=== PATIENT | female | born 1955 | race Caucasian/White ===

== ENCOUNTER 2020-03-27 15:11 | Observation (INO) | payer BC ==
[2020-03-27] MEDS ORDERED: KETOROLAC 15 MG/ML 1 ML VIAL IVP STA (16:31)
[2020-03-27] MEDS ORDERED: SODIUM CHLORIDE 0.9% 1,000 ML IV STA (16:31)
[2020-03-27 16:56] LABS: Basophils # (A) 0.1 k/uL (0-0.2); Basophils % (A) 1 %; Eosinophils # (A) 0.1 k/uL (0-0.7); Eosinophils % (A) 1 %; HGB 14.6 gm/dL (11.4-16.0); Lymphocytes % (A) 27 %; MCH 31.4 pg (25.0-35.0); MCV 92.4 fL (80.0-100.0); Monocytes # (A) 0.3 k/uL (0-1.0); Monocytes % (A) 4 %; Neutrophils % (A) 66 %; Platelet Count 273 k/uL (150-450); RBC 4.65 m/uL (3.80-5.40); RDW 12.6 % (11.5-15.5); WBC 7.6 k/uL (3.8-10.6)
--- NOTE | 2020-03-27 17:04 | XR ---
EXAMINATION TYPE: XR chest 2V DATE OF EXAM: 03/27/2020 COMPARISON: 01/07/2014 HISTORY: Chest pain TECHNIQUE: FINDINGS: Heart and mediastinum are normal. Lungs are clear. Diaphragm is normal. Bony thorax appears normal. IMPRESSION: Normal chest. No change.
[2020-03-27 17:08] LABS: ALT 20 U/L (4-34); AST 34 U/L (14-36); African American GFR (CKD) >90 (>60 ml/min/1.73 sqM); Albumin 4.8 g/dL (3.5-5.0); Alkaline Phosphatase 94 U/L (38-126); Anion Gap 10 mmol/L; Blood Urea Nitrogen 11 mg/dL (7-17); Calcium 10.1 mg/dL (8.4-10.2); Carbon Dioxide 24 mmol/L (22-30); Chloride 104 mmol/L (98-107); Glucose 108 mg/dL (74-99); Lipase 74 U/L (23-300); Magnesium 2.1 mg/dL (1.6-2.3); Non-African American GFR(CKD) >90 (>60 ml/min/1.73 sqM); Potassium 4.1 mmol/L (3.5-5.1); Sodium 138 mmol/L (137-145); Total Bilirubin 0.7 mg/dL (0.2-1.3); Total Protein 8.1 g/dL (6.3-8.2)
[2020-03-27 17:09] LABS: Prothrombin Time 10.7 sec (9.0-12.0)
--- NOTE | 2020-03-27 17:29 | ED ---
Chest Pain HPI - General Chief Complaint: Chest Pain Stated Complaint: Chest Pain, High BP Time Seen by Provider: 03/27/20 16:14 Source: patient, RN notes reviewed Mode of arrival: ambulatory Limitations: no limitations - History of Present Illness Initial Comments: 64-year-old female presents emergency Department with chief complaint of chest pressure, high blood pressure. Patient states she has not felt well over the last few days patient states that she has some pressure underneath her left breast is no shortness of breath. Patient noticed her blood pressure has been elevated. Patient has seen cardiology in the past and had multiple stress test, echo and Holter monitor secondary to persistent tachycardia. Patient takes metoprolol was advised to increase that and started on a statin though she states that she is afraid medications did not start this. Patient states that she started having some infection of her saddle area gland in the left states she took a dose of clindamycin states that she started having diarrhea also. Patient does admit that she feels very anxious was seen at urgent care today and sent here to rule out cardiac disease. Patient states she's also been having some left sciatica pain she has no decrease strength or function. Denies any bowel bladder incontinence or retention. No saddle anesthesias. Patient has no upper back pain - Related Data Home Medications Medication Instructions Recorded Confirmed Levothyroxine Sodium [Synthroid] 50 mcg PO DAILY 01/07/14 03/27/20 Metoprolol Succinate (ER) [Toprol 25 mg PO DAILY 12/04/15 03/27/20 Xl] Multivitamins, Thera [Multivitamin] 1 tab PO DIRECTED 12/04/15 03/27/20 Melatonin 5 mg PO HS PRN 03/27/20 03/27/20 diazePAM [Diazepam] 2 mg PO TID PRN 03/27/20 03/27/20 Allergies Allergy/AdvReac Type Severity Reaction Status Date / Time ciprofloxacin [From Cipro] Allergy Unknown Verified 03/27/20 17:49 ciprofloxacin HCl Allergy Unknown Verified 03/27/20 17:49 [From Cipro] Iodinated Contrast Media Allergy Rash/Hives Verified 03/27/20 17:49 [Iodinated Contrast Media - IV Dye] minocycline HCl Allergy Rash/Hives Verified 03/27/20 17:49 [From Minocin] Penicillins Allergy Unknown Verified 03/27/20 17:49 Childhood Skin Cleanser Combination Allergy Rash/Hives Verified 03/27/20 17:49 No.4 [From Minocin] nitrofurantoin AdvReac Unknown Verified 03/27/20 17:49 [From Macrobid] nitrofurantoin AdvReac Unknown Verified 03/27/20 17:49 macrocrystalline [From Macrobid] Review of Systems ROS Statement: Those systems with pertinent positive or pertinent negative responses have been documented in the HPI. ROS Other: All systems not noted in ROS Statement are negative. EKG Findings - EKG Comments: EKG Findings:: EKG performed at 15:34 normal sinus rhythm rate of 84 TX 158 QRS 88 QT/QTC 370/437 Past Medical History Past Medical History: Hypertension, Thyroid Disorder Additional Past Medical History / Comment(s): TACHYCARDIA (CHEMICAL). gallbladder disorder. TINNITUS History of Any Multi-Drug Resistant Organisms: None Reported Past Surgical History: Cholecystectomy, Orthopedic Surgery, Tonsillectomy Additional Past Surgical History / Comment(s): COLONOSCOPY, bunionectomy Past Anesthesia/Blood Transfusion Reactions: No Reported Reaction Past Psychological History: Anxiety, Depression Smoking Status: Former smoker Past Alcohol Use History: Rare Past Drug Use History: None Reported - Past Family History Father Family Medical History: CVA/TIA General Exam Limitations: no limitations General appearance: alert, in no apparent distress, anxious Head exam: Present: atraumatic, normocephalic, normal inspection Eye exam: Present: normal appearance, PERRL, EOMI. Absent: scleral icterus, conjunctival injection, periorbital swelling ENT exam: Present: normal exam, normal oropharynx, mucous membranes moist Neck exam: Present: normal inspection, full ROM. Absent: tenderness, meningismus, lymphadenopathy Respiratory exam: Present: normal lung sounds bilaterally. Absent: respiratory distress, wheezes, rales, rhonchi, stridor Cardiovascular Exam: Present: regular rate, normal rhythm, normal heart sounds. Absent: systolic murmur, diastolic murmur, rubs, gallop, clicks GI/Abdominal exam: Present: soft, normal bowel sounds. Absent: distended, tenderness, guarding, rebound, rigid Neurological exam: Present: alert, oriented X3 Skin exam: Present: warm, dry, intact, normal color. Absent: rash Course Vital Signs 03/27/20 03/27/20 03/27/20 15:23 16:26 17:48 Temperature 98.9 F Pulse Rate 92 82 Respiratory 20 18 18 Rate Blood Pressure 180/74 187/92 O2 Sat by Pulse 98 99 Oximetry Chest Pain MDM - MDM EKG, labs unremarkable. Patient and then the not alleviated at this point though patient is concerning hypertension, chest discomfort. Patient will be admitted for cardiac rule out Disposition Clinical Impression: Chest pain Disposition: ADMITTED IP TO THIS HOSP Referrals: Milan Pedroza MD [Primary Care Provider] - 1-2 days
[2020-03-27] MEDS ORDERED: LABETALOL 5 MG/ML VIAL MDV IVP STA (17:56)
[2020-03-27] MEDS ORDERED: HEPARIN SODIUM,PORCINE 5,000 UNIT/ML 1 ML VIAL IV ONE (18:04)
[2020-03-27] MEDS ORDERED: ASPIRIN 81 MG PO STA (18:04)
[2020-03-27] MEDS ORDERED: NITROGLYCERIN SL TABS 0.4 MG TAB SUBLINGUAL PRN (18:04)
[2020-03-27] MEDS ORDERED: HEPARIN SODIUM,PORCINE 5,000 UNIT/ML 1 ML VIAL IV PRN (18:04)
[2020-03-27] MEDS ORDERED: HEPARIN SOD,PORK IN 0.45% NACL 25,000 UNIT in 0.45% NACL 1 250ML.BAG IV SCH (18:15)
[2020-03-28 09:00] LABS: Platelet Count 244 k/uL (150-450)
[2020-03-28] MEDS ORDERED: ASPIRIN 325 MG TAB PO SCH (09:00)
[2020-03-28] MEDS ORDERED: METOPROLOL SUCCINATE (ER) 25 MG TAB.ER.24H PO SCH (09:00)
[2020-03-28 09:10] LABS: Cholesterol 214 mg/dL (<200); HDL Cholesterol 80 mg/dL (40-60); LDL Cholesterol,Calculated 120 mg/dL (0-99); Triglycerides 69 mg/dL (<150)
[2020-03-28] MEDS ORDERED: ACETAMINOPHEN TAB 325 MG TAB PO PRN (10:10)
[2020-03-28 10:11] VITALS: RESP 16; TEMP 97.6
--- NOTE | 2020-03-28 10:13 | P.CRDCN ---
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 She follows in the office with Dr. Larios. We have been asked to see in consultation for chest pain. Patient admits she has been dealing with left jaw cyst apparently of her salivary gland was placed on clindamycin approximately 2 weeks ago. Unfortunately she developed abdominal pain and diarrhea with the clindamycin over the last 1 week. She admits she was following up in her doctor's office and was told that she had elevated blood pressure which she has been monitoring with blood pressures in the 160 to 170s which is abnormal for her as her blood pressure is normally in the 130 to 140s. She then developed some chest pressure sensation not associated with any nausea, vomiting or diaphoresis. Due to her elevated blood pressure as well as her chest pain she was told to go to the emergency department. She admits she is feeling much better today. She believes this may have been a component of anxiety. She admits she was supposed to be placed on losartan however does not like being on medications and her blood pressures were predominantly in the 130s over 70s and therefore did not take this. DIAGNOSTICS EKG reveals normal sinus rhythm, normal axis, no significant ST or T wave abnormalities. Chest xray normal chest x-ray. Laboratory reviewed, hemoglobin 14.6, platelets 273, creatinine 0.58, troponin negative 3, proBNP 75, total cholesterol 214, LDL 120. Current cardiac medications include aspirin 325 mg daily, heparin drip, Toprol 25 mg daily. REVIEW OF SYSTEMS At the time of my exam: CONSTITUTIONAL: Denies fever or chills. CARDIOVASCULAR: +chest pain, no shortness of breath, orthopnea, PND or palpitat ions. RESPIRATORY: Denies cough. GASTROINTESTINAL: Denies abdominal pain, diarrhea, constipation, nausea or vomiting. MUSCULOSKELETAL: Denies myalgias. NEUROLOGIC: Denies numbness, tingling or weakness. ENDOCRINE: Denies fatigue, weight change, polydipsia or polyurina. GENITOURINARY: Denies burning, hematuria or urgency with micturation. HEMATOLOGIC: Denies history of anemia or bleeding. PHYSICAL EXAMINATION Blood pressure 171/87 heart rate 91 afebrile and maintaining oxygen saturation on room air. CONSTITUTIONAL: No apparent distress. HEENT: Head is normocephalic. Pupils are equal, round. Sclerae anicteric. Mucous membranes of the mouth are moist. No JVD. No carotid bruit. CHEST EXAMINATION: Lungs are clear to auscultation. No chest wall tenderness is noted on palpation or with deep breathing. HEART EXAMINATION: Regular rate and rhythm. S1, S2 heard. No murmurs, gallops or rub. ABDOMEN: Soft, nontender. Positive bowel sounds. EXTREMITIES: 2+ peripheral pulses, no lower extremity edema and no calf tenderness. NEUROLOGIC EXAMINATION: Patient is awake, alert and oriented x3. ASSESSMENT 1. Atypical chest pain, acute coronary syndrome has been ruled out 2. Essential hypertension, elevated over the past week may be a component of anxiety however previously had been recommended to start losartan. 3. Hyperlipidemia, previously did not want to take a statin 4. Diarrhea, likely related to clindamycin 5. History of SVT PLAN 2-D echo was reviewed with normal left ventricular function without wall motion abnormality. Do not suspect acute coronary syndrome. Blood pressure has been elevated last few days which may be a component of anxiety however patient was instructed to start losartan previously which she had not done. We'll start losartan 25 mg daily. She admits she has had multiple adverse reactions a prior medications. Patient stable for discharge however with outpatient follow-up with Dr. Larios in 1 week. Past Medical History Past Medical History: Hypertension, Thyroid Disorder Additional Past Medical History / Comment(s): TACHYCARDIA (CHEMICAL). gallbladder disorder. TINNITUS History of Any Multi-Drug Resistant Organisms: None Reported Past Surgical History: Cholecystectomy, Orthopedic Surgery, Tonsillectomy Additional Past Surgical History / Comment(s): COLONOSCOPY, bunionectomy Past Anesthesia/Blood Transfusion Reactions: No Reported Reaction Past Psychological History: Anxiety, Depression Smoking Status: Former smoker Past Alcohol Use History: Rare Past Drug Use History: None Reported - Past Family History Father Family Medical History: CVA/TIA Medications and Allergies Home Medications Medication Instructions Recorded Confirmed Type Levothyroxine Sodium [Synthroid] 50 mcg PO DAILY 01/07/14 03/27/20 History Metoprolol Succinate (ER) [Toprol 25 mg PO DAILY 12/04/15 03/27/20 History Xl] Multivitamins, Thera [Multivitamin] 1 tab PO DIRECTED 12/04/15 03/27/20 History Melatonin 5 mg PO HS PRN 03/27/20 03/27/20 History diazePAM [Diazepam] 2 mg PO TID PRN 03/27/20 03/27/20 History Allergies Allergy/AdvReac Type Severity Reaction Status Date / Time ciprofloxacin [From Cipro] Allergy Unknown Verified 03/27/20 17:49 ciprofloxacin HCl Allergy Unknown Verified 03/27/20 17:49 [From Cipro] Iodinated Contrast Media Allergy Rash/Hives Verified 03/27/20 17:49 [Iodinated Contrast Media - IV Dye] minocycline HCl Allergy Rash/Hives Verified 03/27/20 17:49 [From Minocin] Penicillins Allergy Unknown Verified 03/27/20 17:49 Childhood Skin Cleanser Combination Allergy Rash/Hives Verified 03/27/20 17:49 No.4 [From Minocin] nitrofurantoin AdvReac Unknown Verified 03/27/20 17:49 [From Macrobid] nitrofurantoin AdvReac Unknown Verified 03/27/20 17:49 macrocrystalline [From Macrobid] Physical Exam Vitals: Vital Signs Temp Pulse Resp BP Pulse Ox 03/28/20 06:00 70 14 03/28/20 04:05 98.3 F 91 16 171/87 99 03/28/20 02:00 72 16 03/28/20 01:00 68 16 03/28/20 00:00 71 16 147/78 98 03/27/20 21:00 97 16 144/73 98 03/27/20 19:30 98 16 180/82 98 03/27/20 18:33 80 18 166/85 99 03/27/20 18:00 80 18 186/88 99 03/27/20 17:48 82 18 187/92 99 03/27/20 16:26 18 03/27/20 15:23 98.9 F 92 20 180/74 98 Intake and Output 03/27/20 03/28/20 03/28/20 22:59 06:59 14:59 Other: Weight 64.41 kg Results 03/28/20 08:40 03/27/20 16:42 Cardiac Enzymes 03/27/20 03/27/20 03/27/20 Range/Units 16:42 16:42 20:04 AST 34 (14-36) U/L Troponin I <0.012 <0.012 (0.000-0.034) ng/mL 03/27/20 Range/Units 22:52 AST (14-36) U/L Troponin I <0.012 (0.000-0.034) ng/mL Coagulation 03/27/20 Range/Units 16:42 PT 10.7 (9.0-12.0) sec APTT 24.0 (22.0-30.0) sec Lipids 03/28/20 Range/Units 08:40 Triglycerides 69 (<150) mg/dL Cholesterol 214 H (<200) mg/dL HDL Cholesterol 80 H (40-60) mg/dL CBC 03/27/20 03/28/20 Range/Units 16:42 08:40 WBC 7.6 (3.8-10.6) k/uL RBC 4.65 (3.80-5.40) m/uL Hgb 14.6 (11.4-16.0) gm/dL Hct 43.0 (34.0-46.0) % Plt Count 273 244 (150-450) k/uL Comprehensive Metabolic Panel 03/27/20 Range/Units 16:42 Sodium 138 (137-145) mmol/L Potassium 4.1 (3.5-5.1) mmol/L Chloride 104 (98-107) mmol/L Carbon Dioxide 24 (22-30) mmol/L BUN 11 (7-17) mg/dL Creatinine 0.58 (0.52-1.04) mg/dL Glucose 108 H (74-99) mg/dL Calcium 10.1 (8.4-10.2) mg/dL AST 34 (14-36) U/L ALT 20 (4-34) U/L Alkaline Phosphatase 94 (38-126) U/L Total Protein 8.1 (6.3-8.2) g/dL Albumin 4.8 (3.5-5.0) g/dL Current Medications Generic Name Dose Route Start Last Admin Trade Name Freq PRN Reason Stop Dose Admin Aspirin 325 mg 03/28/20 09:00 Aspirin 325 Mg Tab PO DAILY ANGIE Heparin Sodium (Porcine) 0 unit 03/27/20 18:04 Heparin Sodium,Porcine 5,000 Unit/Ml 1 Ml Vial IV Q6HR PRN Low PTT Protocol Heparin Sodium/Sodium Chloride 250 mls @ 7.729 mls/hr 03/27/20 18:15 03/27/20 20:00 25,000 unit/ Sodium Chloride IV Not Given .Q24H [facility] Protocol 12 UNITS/KG/HR Levothyroxine Sodium 50 mcg 03/29/20 06:30 Levothyroxine 50 Mcg Tab PO DAILY@0630 [facility] Melatonin 5 mg 03/28/20 21:00 Melatonin 5 Mg Tablet PO HS [facility] Metoprolol Succinate 25 mg 03/28/20 09:00 Metoprolol Succinate (Er) 25 Mg Tab.Er.24h PO DAILY [facility] Nitroglycerin 0.4 mg 03/27/20 18:04 Nitroglycerin Sl Tabs 0.4 Mg Tab SUBLINGUAL Q5M PRN Chest Pain Intake and Output 03/27/20 03/28/20 03/28/20 22:59 06:59 14:59 Other: Weight 64.41 kg 03/28/20 08:40 03/27/20 16:42
[2020-03-28] MEDS ORDERED: LOSARTAN 25 MG TAB PO SCH (10:15)
--- NOTE | 2020-03-28 10:31 | ECHOF ---
Referral Reason:chest pain MEASUREMENTS -------- HEIGHT: 165.1 cm WEIGHT: 64.4 kg BP: RVIDd: 2.2 cm (< 3.3) IVSd: 0.8 cm (0.6 - 1.1) LVIDd: 3.8 cm (3.9 - 5.3) LVPWd: 1.1 cm (0.6 - 1.1) IVSs: 1.3 cm LVIDs: 2.0 cm LVPWs: 1.7 cm LAESV Index (A-L): 14.69 ml/m Ao Diam: 2.7 cm (2.0 - 3.7) AV Cusp: 1.8 cm (1.5 - 2.6) LA Diam: 1.6 cm (2.7 - 3.8) MV EXCURSION: 18.872 mm (> 18.000) MV EF SLOPE: 81 mm/s (70 - 150) EPSS: 1.0 cm MV E Gabe: 0.75 m/s MV DecT: 139 ms MV A Gabe: 0.97 m/s MV E/A Ratio: 0.77 RAP: 5.00 mmHg RVSP: 25.93 mmHg FINDINGS -------- This was a technically adequate study. The left ventricular size is normal. Left ventricular wall thickness is normal. Overall left vent ricular systolic function is normal with, an EF between 55 - 60 %. The diastolic filling pattern is normal for the age of the patient 9.37. The right ventricle is normal in size. The left atrial size is normal. Normal LA size by volume 22+/-6 ml/m2. The right atrial size is normal. The aortic valve is trileaflet and appears structurally normal. The mitral valve is normal. There is trace mitral regurgitation. The tricuspid valve appears structurally normal. Trace tricuspid regurgitation present. Right nannette tricular systolic pressure is normal at < 35 mmHg. There is no pulmonic regurgitation present. The aortic root size is normal. Normal inferior vena cava with normal inspiratory collapse consistent with estimated right atrial pre ssure of 5 mmHg. There is no pericardial effusion. CONCLUSIONS -------- 1. The left ventricular size is normal. 2. Left ventricular wall thickness is normal. 3. Overall left ventricular systolic function is normal with, an EF between 55 - 60 %. 4. The diastolic filling pattern is normal for the age of the patient 9.37 5. There is trace mitral regurgitation. 6. Trace tricuspid regurgitation present. 7. There is no pericardial effusion. [employer] SALESPERSON: Yolanda Gregory RDCS
[2020-03-28 11:56] VITALS: BP 160/83; PULSE 87
[2020-03-28] MEDS ORDERED: MELATONIN 5 MG TABLET PO SCH (21:00)
--- NOTE | 2020-03-28 22:04 | P.HPIM ---
History of Present Illness H&P Date: 03/28/20 Chief Complaint: Chest discomfort History of presenting complaint: This is a very pleasant 64-year-old patient of Dr. Pedroza. Chronic stable medical conditions include hypertension, hypothyroid, chronic tinnitus. Chronic anxiety. Patient recently on a course of clindamycin. Sister has been having some intermittent diarrhea. She's also noticed that when she lies down at night she gets gurgling in the stomach and increased reflux symptoms. Has not been sleeping well. Recently notice a blood pressure to be running high up to 180 systolic in the doctor's office. Has been getting rather anxious. Also developed some chest pressure not for too long no radiation. No dizziness or lightheadedness. No fever no chills. No cough. Patient does network security analyst. No prior cardiac history. Review of systems: GEN.: None EYES: None HEENT: None NECK: None RESPIRATORY: None CARDIOVASCULAR: None GASTROINTESTINAL: Increased GERD GENITOURINARY: None MUSCULOSKELETAL: None LYMPHATICS: None HEMATOLOGICAL: None PSYCHIATRY: Anxious NEUROLOGICAL: Not sleeping well. Past medical history to include: Hypertension, hypothyroid, tinnitus, anxiety, Social history: . Consult: Occasionally. Works for [employer] Physical examination: VITAL SIGNS: 98.9, 92, 20, 180 with 74, 98% room air GENERAL: BMI 23.6, sitting up, anxious. EYES: Pupils equal. Conjunctiva normal. HEENT: External appearance of nose and ears normal, oral cavity grossly normal. NECK: JVD not raised; masses not palpable. HEART: First and second heart sounds are normal; no edema. LUNGS: Respiratory rate normal; clear to auscultation. ABDOMEN: Soft, nontender, liver spleen not palpable, no masses palpable. PSYCH: Alert and oriented x3; mood and affect anxiousl. NEUROLOGICAL: Cranial nerves grossly intact; no facial asymmetry, power and sensation grossly intact. LYMPHATICS: No lymph nodes palpable in the axilla and neck INVESTIGATIONS, reviewed in the clinical context: White count 7.6 hemoglobin 14.6 platelets 273 potassium 4.1 creatinine 0.58 Troponin I 3 negative LDL 120 EKG tracing personally reviewed by me-no sinus rhythm Chest x-ray film personally reviewed by me-lung mantilla clear Assessment: -Noncardiac sounding anterior chest wall pain possibly from esophageal spasm from increasing GERD symptoms. Doubt cardiac cause -Increase GERD -Anxiety not otherwise specified, contributing to hypertension -Insomnia, multifactorial -Essential hypertension with contribution from anxiety and unable to sleep -Hypothyroid Plan: Cardiology he was consulted to rule out a cardiac cause. We'll add PPI. C. diff was sent off to rule out C. diff colitis though unlikely. Patient was counseled about mindfulness and healthy diet. Past Medical History Past Medical History: Hypertension, Thyroid Disorder Additional Past Medical History / Comment(s): TACHYCARDIA (CHEMICAL). gallbladder disorder. TINNITUS History of Any Multi-Drug Resistant Organisms: None Reported Past Surgical History: Cholecystectomy, Orthopedic Surgery, Tonsillectomy Additional Past Surgical History / Comment(s): COLONOSCOPY, bunionectomy Past Anesthesia/Blood Transfusion Reactions: No Reported Reaction Past Psychological History: Anxiety, Depression Smoking Status: Former smoker Past Alcohol Use History: Rare Past Drug Use History: None Reported - Past Family History Father Family Medical History: CVA/TIA Medications and Allergies Home Medications Medication Instructions Recorded Confirmed Type Levothyroxine Sodium [Synthroid] 50 mcg PO DAILY 01/07/14 03/27/20 History Metoprolol Succinate (ER) [Toprol 25 mg PO DAILY 12/04/15 03/27/20 History XL] Multivitamins, Thera [Multivitamin 1 tab PO DIRECTED 12/04/15 03/27/20 History (formulary)] Melatonin 5 mg PO HS PRN 03/27/20 03/27/20 History diazePAM [Diazepam] 2 mg PO TID PRN 03/27/20 03/27/20 History Aspirin 81 mg PO DAILY #30 chewable 03/28/20 Rx Losartan [Cozaar] 25 mg PO HS #30 tab 03/28/20 Rx Omeprazole [PriLOSEC] 20 mg PO AC-BID #60 cap 03/28/20 Rx Allergies Allergy/AdvReac Type Severity Reaction Status Date / Time ciprofloxacin [From Cipro] Allergy Unknown Verified 03/27/20 17:49 ciprofloxacin HCl Allergy Unknown Verified 03/27/20 17:49 [From Cipro] Iodinated Contrast Media Allergy Rash/Hives Verified 03/27/20 17:49 [Iodinated Contrast Media - IV Dye] minocycline HCl Allergy Rash/Hives Verified 03/27/20 17:49 [From Minocin] Penicillins Allergy Unknown Verified 03/27/20 17:49 Childhood Skin Cleanser Combination Allergy Rash/Hives Verified 03/27/20 17:49 No.4 [From Minocin] nitrofurantoin AdvReac Unknown Verified 03/27/20 17:49 [From Macrobid] nitrofurantoin AdvReac Unknown Verified 03/27/20 17:49 macrocrystalline [From Macrobid] Physical Exam Vitals: Vital Signs Temp Pulse Pulse Resp BP BP Pulse Ox 03/28/20 09:53 97.6 F 86 16 132/78 97 03/28/20 09:00 86 16 03/28/20 06:00 70 14 03/28/20 04:05 98.3 F 91 16 171/87 99 03/28/20 02:00 72 16 03/28/20 01:00 68 16 03/28/20 00:00 71 16 147/78 98 03/27/20 21:00 97 16 144/73 98 03/27/20 19:30 98 16 180/82 98 03/27/20 18:33 80 18 166/85 99 03/27/20 18:00 80 18 186/88 99 03/27/20 17:48 82 18 187/92 99 03/27/20 16:26 18 03/27/20 15:23 98.9 F 92 20 180/74 98 Intake and Output 03/27/20 03/28/20 03/28/20 22:59 06:59 14:59 Other: Voiding Method Toilet Weight 64.41 kg 64.41 kg Results CBC & Chem 7: 03/28/20 08:40 03/27/20 16:42 Labs: Abnormal Lab Results - Last 24 Hours (Table) 03/27/20 03/28/20 Range/Units 16:42 08:40 Glucose 108 H (74-99) mg/dL Cholesterol 214 H (<200) mg/dL LDL Cholesterol, Calc 120 H (0-99) mg/dL HDL Cholesterol 80 H (40-60) mg/dL Thrombosis Risk Factor Assmnt - Choose All That Apply Any of the Below Risk Factors Present?: No Other Risk Factors: Yes Each Risk Factor Represents 2 Points: Age 61-74 years Other congenital or acquired thrombophilia - If yes, enter type in comment: No Thrombosis Risk Factor Assessment Total Risk Factor Score: 2 Thrombosis Risk Factor Assessment Level: Low Risk
--- NOTE | 2020-03-28 22:07 | P.DS ---
Providers Date of admission: 03/27/20 18:19 Expected date of discharge: 03/28/20 Attending physician: Emmett Snachez Consults: 03/27/20 18:04 Consult Physician Urgent Consulting Provider: Hima Larios Consult Reason/Comments: chest pain, hypertension Do you want consulting provider notified?: Yes Primary care [facility] Course: Chief Complaint: Chest discomfort History of presenting complaint: This is a very pleasant 64-year-old patient of Dr. Pedroza. Chronic stable medical conditions include hypertension, hypothyroid, chronic tinnitus. Chronic anxiety. Patient recently on a course of clindamycin. Sister has been having some intermittent diarrhea. She's also noticed that when she lies down at night she gets gurgling in the stomach and increased reflux symptoms. Has not been sleeping well. Recently notice a blood pressure to be running high up to 180 systolic in the doctor's office. Has been getting rather anxious. Also developed some chest pressure not for too long no radiation. No dizziness or lightheadedness. No fever no chills. No cough. Patient does pastoral worker. No prior cardiac history. Patient felt to have exacerbation of GERD, anxiety, antibiotic associated diarrhea, insomnia. Seen by cardiology. They did add losartan. Prilosec was added. Patient's counseled about diet and mindfulness. She also see GI as an outpatient. Consultation: Dr. Tomlinson from cardiology Physical examination: VITAL SIGNS: 97.6, 87, 16, 160/83, 97% room air GENERAL: BMI 23.6, sitting up, anxious. EYES: Pupils equal. Conjunctiva normal. HEENT: External appearance of nose and ears normal, oral cavity grossly normal. NECK: JVD not raised; masses not palpable. HEART: First and second heart sounds are normal; no edema. LUNGS: Respiratory rate normal; clear to auscultation. ABDOMEN: Soft, nontender, liver spleen not palpable, no masses palpable. PSYCH: Alert and oriented x3; mood and affect anxiousl. NEUROLOGICAL: Cranial nerves grossly intact; no facial asymmetry, power and sensation grossly intact. LYMPHATICS: No lymph nodes palpable in the axilla and neck INVESTIGATIONS, reviewed in the clinical context: White count 7.6 hemoglobin 14.6 platelets 273 potassium 4.1 creatinine 0.58 Troponin I 3 negative LDL 120 EKG tracing personally reviewed by me-no sinus rhythm Chest x-ray film personally reviewed by me-lung mantilla clear 2-D echocardiogram-EF 55-60% Assessment: -Noncardiac sounding anterior chest wall pain possibly from esophageal spasm from increasing GERD symptoms. Doubt cardiac cause -Increase GERD -Anxiety not otherwise specified, contributing to hypertension -Insomnia, multifactorial -Essential hypertension with contribution from anxiety and unable to sleep -Hypothyroid Disposition: Home Patient Condition at Discharge: Stable Plan - Discharge Summary Discharge Rx Participant: Yes New Discharge Prescriptions: New Aspirin 81 mg PO DAILY #30 chewable Losartan [Cozaar] 25 mg PO HS #30 tab Omeprazole [PriLOSEC] 20 mg PO AC-BID #60 cap Continue Levothyroxine Sodium [Synthroid] 50 mcg PO DAILY Metoprolol Succinate (ER) [Toprol XL] 25 mg PO DAILY Multivitamins, Thera [Multivitamin (formulary)] 1 tab PO DIRECTED diazePAM [Diazepam] 2 mg PO TID PRN PRN Reason: Anxiety Melatonin 5 mg PO HS PRN PRN Reason: sleep Discharge Medication List Levothyroxine Sodium [Synthroid] 50 mcg PO DAILY 01/07/14 [History] Metoprolol Succinate (ER) [Toprol XL] 25 mg PO DAILY 12/04/15 [History] Multivitamins, Thera [Multivitamin (formulary)] 1 tab PO DIRECTED 12/04/15 [History] Melatonin 5 mg PO HS PRN 03/27/20 [History] diazePAM [Diazepam] 2 mg PO TID PRN 03/27/20 [History] Aspirin 81 mg PO DAILY #30 chewable 03/28/20 [Rx] Losartan [Cozaar] 25 mg PO HS #30 tab 03/28/20 [Rx] Omeprazole [PriLOSEC] 20 mg PO AC-BID #60 cap 03/28/20 [Rx] Follow up Appointment(s)/Referral(s): Hima Larios MD [STAFF PHYSICIAN] - 1 Week Milan Pedroza MD [Primary Care Provider] - 1-2 days Sierra Dalal MD [STAFF PHYSICIAN] - 3 Weeks Discharge Disposition: HOME SELF-CARE
[2020-03-29] MEDS ORDERED: LEVOTHYROXINE 50 MCG TAB PO SCH (06:30)
== END 2020-03-28 13:47 | disposition home or self-care (01) ==
LOC: EC 15:11 → 1SOBS 18:19
PROVIDERS: ADMIT Hospitalist; ATTEND Hospitalist
DX: R07.89 Other chest pain (principal); M54.32 Sciatica, left side; I10 Essential (primary) hypertension; F41.9 Anxiety disorder, unspecified; F32.9 Major depressive disorder, single episode, unspecified; E03.9 Hypothyroidism, unspecified; E78.5 Hyperlipidemia, unspecified; I47.1 Supraventricular tachycardia; I65.29 Occlusion and stenosis of unspecified carotid artery; K52.1 Toxic gastroenteritis and colitis; T36.8X5A Adverse effect of other systemic antibiotics, initial encounter; T46.5X6A Underdosing of other antihypertensive drugs, initial encounter; Z91.128 Patient's intentional underdosing of medication regimen for other reason; H93.19 Tinnitus, unspecified ear; K21.9 Gastro-esophageal reflux disease without esophagitis; G47.00 Insomnia, unspecified; Z79.890 Hormone replacement therapy; Z79.899 Other long term (current) drug therapy; Z79.82 Long term (current) use of aspirin; Z88.1 Allergy status to other antibiotic agents; Z91.041 Radiographic dye allergy status; Z88.0 Allergy status to penicillin; Z91.048 Other nonmedicinal substance allergy status; Z90.49 Acquired absence of other specified parts of digestive tract; Z87.891 Personal history of nicotine dependence; Z82.3 Family history of stroke
CPT/HCPCS: 96374; 96375; 99285; 36415; 93005 ×2; 93306; 83880; 80061; 80053; 83690; 83735; 84484; 85025; 85049; 85610; 85730; 87324; 71046; G0378 ×2; J1644; J1885

== ENCOUNTER 2020-05-23 12:15 | Emergency (ER) | payer BC ==
[2020-05-23 12:22] VITALS: TEMP 97.8
--- NOTE | 2020-05-23 12:44 | ED ---
General Adult HPI - General Chief complaint: Recheck/Abnormal Lab/Rx Stated complaint: abd pain/frequent urination Time Seen by Provider: 05/23/20 12:15 Source: patient, RN notes reviewed, old records reviewed Mode of arrival: ambulatory Limitations: no limitations - History of Present Illness Initial comments: This is a 64-year-old female who presents emergency Department with the complaint that she is having urinary urgency. Patient states occasionally it jean. Patient states she was just treated for a urinary tract infection in early April but she stopped the antibiotic couple weeks ago. Patient denies any fever chills. Patient states she does have some lower back discomfort. Patient denies any nausea vomiting diarrhea. Patient states she has some suprapubic tenderness. Patient also complains been having some difficulty sleeping lately. Patient denies chest pain or difficulty breathing shortness of breath. Patient denies any cough. - Related Data Home Medications Medication Instructions Recorded Confirmed Levothyroxine Sodium [Synthroid] 50 mcg PO DAILY 01/07/14 05/23/20 Metoprolol Succinate (ER) [Toprol 25 mg PO DAILY 12/04/15 05/23/20 XL] ALPRAZolam [Xanax] 0.25 mg PO TID PRN 05/23/20 05/23/20 Hydrocortisone Cream 1 applic TOPICAL BID 05/23/20 05/23/20 [Hydrocortisone 2.5% Cream] Allergies Allergy/AdvReac Type Severity Reaction Status Date / Time ciprofloxacin [From Cipro] Allergy Unknown Verified 05/23/20 12:52 ciprofloxacin HCl Allergy Unknown Verified 05/23/20 12:52 [From Cipro] Iodinated Contrast Media Allergy Rash/Hives Verified 05/23/20 12:52 [Iodinated Contrast Media - IV Dye] minocycline HCl Allergy Rash/Hives Verified 05/23/20 12:52 [From Minocin] Penicillins Allergy Unknown Verified 05/23/20 12:52 Childhood Skin Cleanser Combination Allergy Rash/Hives Verified 05/23/20 12:52 No.4 [From Minocin] nitrofurantoin AdvReac Unknown Verified 05/23/20 12:52 [From Macrobid] nitrofurantoin AdvReac Unknown Verified 05/23/20 12:52 macrocrystalline [From Macrobid] Review of Systems ROS Statement: Those systems with pertinent positive or pertinent negative responses have been documented in the HPI. ROS Other: All systems not noted in ROS Statement are negative. Past Medical History Past Medical History: Hypertension, Thyroid Disorder Additional Past Medical History / Comment(s): TACHYCARDIA (CHEMICAL). gallbladder disorder. TINNITUS History of Any Multi-Drug Resistant Organisms: None Reported Past Surgical History: Cholecystectomy, Orthopedic Surgery, Tonsillectomy Additional Past Surgical History / Comment(s): COLONOSCOPY, bunionectomy Past Anesthesia/Blood Transfusion Reactions: No Reported Reaction Past Psychological History: Anxiety, Depression Smoking Status: Former smoker Past Alcohol Use History: Rare Past Drug Use History: None Reported - Past Family History Father Family Medical History: CVA/TIA General Exam - General Exam Comments Initial Comments: GENERAL: Patient is well-developed and well-nourished. Patient is nontoxic and well- hydrated and is in mild distress. ENT: Neck is soft and supple. No significant lymphadenopathy is noted. Oropharynx i s clear. Moist mucous membranes. Neck has full range of motion without eliciting any pain. EYES: The sclera were anicteric and conjunctiva were pink and moist. Extraocular movements were intact and pupils were equal round and reactive to light. Eyelids were unremarkable. PULMONARY: Unlabored respirations. Good breath sounds bilaterally. No audible rales rhonchi or wheezing was noted. CARDIOVASCULAR: There is a regular rate and rhythm without any murmurs gallops or rubs. ABDOMEN: Soft and nontender with normal bowel sounds. SKIN: Skin is clear with no lesions or rashes and otherwise unremarkable. NEUROLOGIC: Patient is alert and oriented x3. Cranial nerves II through XII are grossly intact. Motor and sensory are also intact. Normal speech, volume and content. Symmetrical smile. MUSCULOSKELETAL: Normal extremities with adequate strength and full range of motion. No lower extremity swelling or edema. No calf tenderness. LYMPHATICS: No significant lymphadenopathy is noted PSYCHIATRIC: Normal psychiatric evaluation. Limitations: no limitations Course Vital Signs 05/23/20 05/23/20 12:18 13:47 Temperature 97.8 F Pulse Rate 79 78 Respiratory 18 16 Rate Blood Pressure 164/89 142/82 O2 Sat by Pulse 97 100 Oximetry Medical Decision Making - Lab Data Result diagrams: 05/23/20 12:44 05/23/20 12:44 Lab Results 05/23/20 05/23/20 05/23/20 Range/Units 12:44 12:44 12:44 WBC 7.6 (3.8-10.6) k/uL RBC 4.31 (3.80-5.40) m/uL Hgb 13.6 (11.4-16.0) gm/dL Hct 39.8 (34.0-46.0) % MCV 92.4 (80.0-100.0) fL MCH 31.5 (25.0-35.0) pg MCHC 34.0 (31.0-37.0) g/dL RDW 13.5 (11.5-15.5) % Plt Count 252 (150-450) k/uL MPV 7.1 Neutrophils % 72 % Lymphocytes % 21 % Monocytes % 5 % Eosinophils % 1 % Basophils % 0 % Neutrophils # 5.5 (1.3-7.7) k/uL Lymphocytes # 1.6 (1.0-4.8) k/uL Monocytes # 0.4 (0-1.0) k/uL Eosinophils # 0.1 (0-0.7) k/uL Basophils # 0.0 (0-0.2) k/uL Sodium 138 (137-145) mmol/L Potassium 4.0 (3.5-5.1) mmol/L Chloride 105 (98-107) mmol/L Carbon Dioxide 24 (22-30) mmol/L Anion Gap 9 mmol/L BUN 8 (7-17) mg/dL Creatinine 0.58 (0.52-1.04) mg/dL Est GFR (CKD-EPI)AfAm >90 (>60 ml/min/1.73 sqM) Est GFR (CKD-EPI)NonAf >90 (>60 ml/min/1.73 sqM) Glucose 105 H (74-99) mg/dL Calcium 9.7 (8.4-10.2) mg/dL Total Bilirubin 0.5 (0.2-1.3) mg/dL AST 25 (14-36) U/L ALT 16 (4-34) U/L Alkaline Phosphatase 94 (38-126) U/L Total Protein 7.5 (6.3-8.2) g/dL Albumin 4.4 (3.5-5.0) g/dL Amylase 39 (30-110) U/L Lipase 101 (23-300) U/L Urine Color Light Yellow Urine Appearance Clear (Clear) Urine pH 6.0 (5.0-8.0) Ur Specific [place] 1.004 (1.001-1.035) Urine Protein Negative (Negative) Urine Glucose (UA) Negative (Negative) Urine Ketones Negative (Negative) Urine Blood Negative (Negative) Urine Nitrite Negative (Negative) Urine Bilirubin Negative (Negative) Urine Urobilinogen <2.0 (<2.0) mg/dL Ur Leukocyte Esterase Negative (Negative) Disposition Clinical Impression: Abdominal pain, Urinary urgency Disposition: HOME SELF-CARE Condition: Good Instructions (If sedation given, give patient instructions): Abdominal Pain (ED) Is patient prescribed a controlled substance at d/c from ED?: No Referrals: Milan Pedroza MD [Primary Care Provider] - 1-2 days Time of Disposition: 14:11
[2020-05-23 13:00] LABS: Appearance,Urine Clear (Clear); Bilirubin,Urine Negative (Negative); Blood,Urine Negative (Negative); Color,Urine Light Yellow; Glucose,Urine (UA) Negative (Negative); Ketones,Urine Negative (Negative); Leukocyte Esterase,Urine Negative (Negative); Nitrite,Urine Negative (Negative); Protein,Urine Negative (Negative); Specific Gravity,Urine 1.004 (1.001-1.035); Urobilinogen,Urine <2.0 mg/dL (<2.0)
[2020-05-23 13:01] LABS: Basophils % (A) 0 %; Eosinophils # (A) 0.1 k/uL (0-0.7); Eosinophils % (A) 1 %; HCT 39.8 % (34.0-46.0); HGB 13.6 gm/dL (11.4-16.0); Lymphocytes # (A) 1.6 k/uL (1.0-4.8); Lymphocytes % (A) 21 %; MCH 31.5 pg (25.0-35.0); MCV 92.4 fL (80.0-100.0); Mean Platelet Volume 7.1; Monocytes # (A) 0.4 k/uL (0-1.0); Monocytes % (A) 5 %; Neutrophils # (A) 5.5 k/uL (1.3-7.7); Neutrophils % (A) 72 %; Platelet Count 252 k/uL (150-450); RBC 4.31 m/uL (3.80-5.40); RDW 13.5 % (11.5-15.5); WBC 7.6 k/uL (3.8-10.6)
[2020-05-23 13:11] LABS: ALT 16 U/L (4-34); AST 25 U/L (14-36); African American GFR (CKD) >90 (>60 ml/min/1.73 sqM); Albumin 4.4 g/dL (3.5-5.0); Alkaline Phosphatase 94 U/L (38-126); Amylase 39 U/L (30-110); Anion Gap 9 mmol/L; Blood Urea Nitrogen 8 mg/dL (7-17); Calcium 9.7 mg/dL (8.4-10.2); Carbon Dioxide 24 mmol/L (22-30); Chloride 105 mmol/L (98-107); Glucose 105 mg/dL (74-99); Lipase 101 U/L (23-300); Non-African American GFR(CKD) >90 (>60 ml/min/1.73 sqM); Sodium 138 mmol/L (137-145); Total Bilirubin 0.5 mg/dL (0.2-1.3); Total Protein 7.5 g/dL (6.3-8.2)
[2020-05-23 13:51] VITALS: BP 142/82; PULSE 78; RESP 16
== END 2020-05-23 14:58 | disposition home or self-care (01) ==
LOC: EC 12:15
DX: R10.9 Unspecified abdominal pain (principal); R39.15 Urgency of urination; E07.9 Disorder of thyroid, unspecified; I10 Essential (primary) hypertension; F41.9 Anxiety disorder, unspecified; F32.9 Major depressive disorder, single episode, unspecified; Z79.890 Hormone replacement therapy; Z79.899 Other long term (current) drug therapy; Z88.1 Allergy status to other antibiotic agents; Z91.041 Radiographic dye allergy status; Z88.0 Allergy status to penicillin; Z91.048 Other nonmedicinal substance allergy status; Z87.891 Personal history of nicotine dependence
CPT/HCPCS: 36415; 80053; 81003; 82150; 83690; 85025; 99284

== ENCOUNTER → 2020-07-25 | Outpatient (CLI) | payer BC ==
--- NOTE | 2020-07-25 08:03 | US ---
EXAMINATION TYPE: US abdomen complete DATE OF EXAM: 07/25/2020 COMPARISON: US, CT CLINICAL HISTORY: R63.4 abnormal weight loss. Patient stated has had 3 antibiotics in past 4 months w ith associated GI upset; gallbladder; on thyroid medication x years; gallbladder removed. EXAM MEASUREMENTS: Liver Length: 15.2 cm Gallbladder Wall: surgically removed CBD: 0.4 cm Spleen: 10.0 cm Right Kidney: 9.9 x 5.5 x 3.8 cm Left Kidney: 9.8 x 4.2x 5.0 cm Pancreas: wnl Liver: wnl, no masses seen at dome Gallbladder: surgically removed Evidence for sonographic Agrawal's sign: no CBD: wnl Spleen: wnl Right Kidney: No hydronephrosis or masses seen Left Kidney: No hydronephrosis or masses seen Upper IVC: wnl Abd Aorta: wnl The liver is homogenous. The intrahepatic portion of the IVC and proximal abdominal aorta are within normal limits. The gallbladder is surgically absent. Common bile duct is unremarkable. The visualiz ed portions of the pancreas are homogenous. The spleen is unremarkable. Kidneys are symmetric and f ree of hydronephrosis. No renal lesions are seen. IMPRESSION: No distinct abnormality seen.
== END | disposition home or self-care (01) ==
LOC: RADUSWWP 07:06
PROVIDERS: ATTEND Internal Medicine Gastroenterology
DX: R63.4 Abnormal weight loss (principal); Z90.49 Acquired absence of other specified parts of digestive tract
CPT/HCPCS: 76700

== ENCOUNTER → 2020-08-03 | Outpatient (CLI) | payer BC ==
--- NOTE | 2020-08-03 16:12 | CT ---
EXAMINATION TYPE: CT abdomen pelvis wo con DATE OF EXAM: 08/03/2020 COMPARISON: 01/26/2014 INDICATION: Weight loss DLP: 230.9 mGycm, Automated exposure control for dose reduction was used. CONTRAST: 0 mL of Isovue 300. Study performed without Oral Contrast TECHNIQUE: Axial images were obtained from above the diaphragm to the pubic rami in the axial plane a t 5 mm thick sections. Reconstructed images are reviewed on the computer in the coronal plane. FINDINGS: Limited CT sections are obtained the lung bases. The lung bases are clear. CT ABDOMEN: Liver: Normal Spleen: Normal Pancreas: Normal Adrenal glands: The adrenal glands are normal. Gallbladder: Surgically absent Kidneys: No masses are evident. No hydronephrosis is present. No cysts are present. No renal stone s are evident. Aorta: Vascular calcification is within the aorta. Inferior vena cava: Normal. CT PELVIS: Loops of bowel within the abdomen and pelvis are normal. The study is without oral contrast limit ing bowel evaluation. Appendix: Normal as visualized. Urinary bladder: Normal. Genitourinary structures: Uterus and ovaries as visualized appear normal Osseous structures: No suspicious lytic or sclerotic lesions. IMPRESSIONS: 1. No suspicious acute changes CT abdomen and pelvis
== END | disposition home or self-care (01) ==
LOC: RADCTMAIN 15:38
PROVIDERS: ATTEND Internal Medicine Gastroenterology
DX: R63.4 Abnormal weight loss (principal)
CPT/HCPCS: 74176

== ENCOUNTER → 2020-09-18 | Outpatient (CLI) | payer BC ==
--- NOTE | 2020-09-18 20:53 | CONS ---
CONSULTATION REASON FOR CONSULTATION: Insomnia. HISTORY OF PRESENT ILLNESS: 64-year-old female patient who started approximately 5 months ago and having difficulties in sleep maintenance. She has been under lot of stress. She lost her mother in law to a complicated uterine cancer back in October of 2019 and she lost her mother to complications of pancreatic cancer in june of 2020. She also had some medical issues with a salivary gland infection. She was treated with antibiotics back in April 2020. Later on she received several course of antibiotics for UTI and antibiotics were giving her significant side effects, including tinnitus which was preventing her from going sleep. Based on that, she had sleep maintenance insomnia where she was unable to maintain sleep. She would wake up in the middle of the night. She had no issues in initiating sleep. She goes to bed around 11:00 pm. She gets out of bed around 5:50 am in the morning whenever she is working and on weekends she gets out of bed between 7 and 8:00 am. 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 No weight gain. No issues with anxiety. No issues with depression. No issues with urination. No issues with heartburn, shortness of breath or chest pain. She has been feeling more tired, fatigued and tired. No bruxism. No sleepwalking. No sleep talking. No symptoms of restlessness in lower extremities. No palpitations. No panic. No episodes of choking or gasping for air. No nocturia. PAST MEDICAL HISTORY: Hypertension, hypothyroidism. PAST SURGICAL HISTORY: Includes cholecystectomy, tonsillectomy, bunionectomy. DRUG ALLERGIES: TO PENICILLIN AND MINOCYCLINE, CIPRO AND MACROBID. OUTPATIENT MEDICATION: Includes levothyroxine 50 mcg p.o. daily, Toprol-XL 50 mg half tablet twice a day. SOCIAL HISTORY: The patient is a former smoker, quit in 1987. No history of alcoholism. No history of IV drugs. FAMILY HISTORY: Mother of complications of pancreas cancer. No other positive family medical history. REVIEW OF SYSTEMS: Fourteen-point review of system was done. Positive findings are mentioned in history of present illness. BP is 161/73, pulse 77, respirations 12, temperature 98.2, saturation 99% on room air. BMI 21.6. Fulton score is at 8. Neck size is 13. Body weight is 130. GENERAL APPEARANCE: Calm comfortable. Head atraumatic, normocephalic. NECK: Supple. No JVD. No goiter. No neck masses. LUNGS: Clear to auscultation. HEART: Heart sounds are regular rate and rhythm. Normal S1, S2. No S3, S4. No murmurs. ABDOMEN: Soft, nontender. No organomegaly. EXTREMITIES: No edema. No cyanosis or clubbing. NEUROLOGIC: Awake and alert. There is no focal neurological deficits. IMPRESSION: 1. Psychophysiologic insomnia of new onset. Symptoms started back in April of 2020. Triggers could have been loss of family members in addition to some ongoing medical problems. Note that the patient was given a combination of melatonin and Xanax by her primary care physician. She had some limited response. Overall, she is gradually improving. She is able to extend her sleep hours and her symptoms of insomnia seems to be gradually improving over the past few weeks. No other major comorbidities affecting the patient's sleep quality. No need for sleep study at this point in time. PLAN: 1. No need for sleep study. 2. Her sleep hygiene measures are excellent. The patient has limiting screen time. She is avoiding alcoholic beverages or caffeinated beverages late afternoon. She maintains regular sleep cycle. She is trying to avoid any naps during the day. All these are favorable hygiene measures. I would suggest stopping the Xanax and trying 5 mg of Ambien on an as-needed basis to promote her sleep maintenance and I think over the next few weeks, she will even improve further. I reassured the patient. She has no other major comorbidities. Anticipate full recovery over the next few weeks. Contact me back if there are ongoing issues with insomnia. MMODL / IJN: [id number] /
== END ==
LOC: SLEEP 13:13
PROVIDERS: ATTEND Internal Medicine Critical Care Medicine
DX: F51.04 Psychophysiologic insomnia (principal); E03.9 Hypothyroidism, unspecified; I10 Essential (primary) hypertension; Z88.0 Allergy status to penicillin; Z88.1 Allergy status to other antibiotic agents; Z87.891 Personal history of nicotine dependence; Z91.041 Radiographic dye allergy status
CPT/HCPCS: 99211